=== PATIENT | female | born 2000 | race Caucasian/White ===

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

== ENCOUNTER 2019-12-15 18:40 | Outpatient (CLI) | payer OTHER ==
[2019-12-15 19:10] LABS: APPEARANCE,URINE SLIGHTLY-CLOUDY; BILIRUBIN,URINE NEGATIVE (NEGATIVE); COLOR,URINE YELLOW; GLUCOSE, URINE NEGATIVE (NEGATIVE); KETONES,URINE NEGATIVE (NEGATIVE); LEUKOCYTE ESTERASE,URINE NEGATIVE (NEGATIVE); NITRITE,URINE NEGATIVE (NEGATIVE); PROTEIN,URINE NEGATIVE (NEGATIVE); URINE SPECIFIC GRAVITY 1.005; UROBILINOGEN,URINE NEGATIVE mg/dL (<2.0)
[2019-12-15] MEDS ORDERED: ACETAMINOPHEN 325 MG TABLET ONE (19:20)
[2019-12-15 19:22] LABS: URINE AMPHETAMINES SCREEN NEGATIVE; URINE BARBITURATES SCREEN NEGATIVE; URINE BENZODIAZEPINES SCREEN NEGATIVE; URINE COCAINE SCREEN NEGATIVE; URINE MARIJUANA (THC) SCREEN NEGATIVE; URINE METHADONE SCREEN NEGATIVE; URINE PHENCYCLIDINE SCREEN NEGATIVE
[2019-12-15] MEDS ORDERED: ACETAMINOPHEN 325 MG TABLET PO ONE (20:30)
--- NOTE | 2019-12-15 20:53 | Non Stress Test Report ---
Non Stress Test Datetime Report Generated by CPN: 12/15/2019 20:53 DEMOGRAPHIC EGA NST: 38.3 INDICATION Indication for Study (NST) Other: lc/pre-e VITAL SIGNS Temperature - NST: 98.7 Pulse - NST: 68 RESP - NST: 18 NBPSYS NST: 112 NBPDIA NST: 58 MONITORING Monitor Explained: Monitor Explained; Test Explained; Patient Verbalized Understanding Time on Monitor: 12/15/2019 19:21 Time off Monitor: 12/15/2019 20:25 NST Duration: 64 NST INTERVENTIONS NST Interventions: PO Hydration; Reposition Patient Physician Notified NST: Dr Inder BABY A: [id number] BABY A Movement : Present Contraction Frequency : rare FHR Baseline : 135 Accelerations : 15X15 Decelerations : None Variability : Moderate 6-25bpm NST Review: Meets Criteria for Reactive NST NST Review and Verified By : Amor Caballero RN NST Results: Reactive NST REPORT Report Trigger: Send Report
== END 2019-12-15 20:39 | disposition home or self-care (01) ==
LOC: LC 18:40
PROVIDERS: ATTEND Obstetrics & Gynecology
DX: O26.893 Other specified pregnancy related conditions, third trimester (principal); R51 Headache; O12.03 Gestational edema, third trimester; Z3A.39 39 weeks gestation of pregnancy
CPT/HCPCS: 59025; 80307; 81001

== ENCOUNTER 2019-12-21 04:59 | Outpatient (CLI) | payer OTHER ==
[2019-12-21 06:05] LABS: APPEARANCE,URINE CLOUDY; BILIRUBIN,URINE NEGATIVE (NEGATIVE); COLOR,URINE YELLOW; GLUCOSE, URINE NEGATIVE (NEGATIVE); KETONES,URINE NEGATIVE (NEGATIVE); LEUKOCYTE ESTERASE,URINE TRACE (NEGATIVE); NITRITE,URINE NEGATIVE (NEGATIVE); PROTEIN,URINE 30 mg/dL (NEGATIVE); URINE SPECIFIC GRAVITY 1.014; UROBILINOGEN,URINE NEGATIVE mg/dL (<2.0)
[2019-12-21 06:25] LABS: URINE AMPHETAMINES SCREEN NEGATIVE; URINE BARBITURATES SCREEN NEGATIVE; URINE BENZODIAZEPINES SCREEN NEGATIVE; URINE COCAINE SCREEN NEGATIVE; URINE MARIJUANA (THC) SCREEN NEGATIVE; URINE METHADONE SCREEN NEGATIVE; URINE PHENCYCLIDINE SCREEN NEGATIVE
[2019-12-21] MEDS ORDERED: RINGERS SOLUTION,LACTATED 1,000 ML IV PRN (07:45)
[2019-12-21] MEDS ORDERED: RINGERS SOLUTION,LACTATED 1,000 ML IV ONE (07:45)
[2019-12-21] MEDS ORDERED: HYDROXYZINE PAMOATE 50 MG CAPSULE ONE (09:09)
[2019-12-21] MEDS ORDERED: HYDROXYZINE PAMOATE 50 MG CAPSULE PO ONE (09:10)
== END 2019-12-21 05:06 | disposition home or self-care (01) ==
LOC: LC 04:59
PROVIDERS: ATTEND Student in an Organized Health Care Education/Training Program
DX: O47.1 False labor at or after 37 completed weeks of gestation (principal); Z3A.39 39 weeks gestation of pregnancy; Z87.891 Personal history of nicotine dependence
CPT/HCPCS: 80307; 81005

== ENCOUNTER 2019-12-22 19:11 | Outpatient (CLI) | payer OTHER ==
[2019-12-22 20:01] LABS: APPEARANCE,URINE SLIGHTLY-CLOUDY; BILIRUBIN,URINE NEGATIVE (NEGATIVE); COLOR,URINE YELLOW; GLUCOSE, URINE NEGATIVE (NEGATIVE); KETONES,URINE NEGATIVE (NEGATIVE); LEUKOCYTE ESTERASE,URINE NEGATIVE (NEGATIVE); NITRITE,URINE NEGATIVE (NEGATIVE); PROTEIN,URINE NEGATIVE (NEGATIVE); URINE SPECIFIC GRAVITY 1.011; UROBILINOGEN,URINE NEGATIVE mg/dL (<2.0)
[2019-12-22 20:16] LABS: URINE AMPHETAMINES SCREEN NEGATIVE; URINE BARBITURATES SCREEN NEGATIVE; URINE BENZODIAZEPINES SCREEN NEGATIVE; URINE COCAINE SCREEN NEGATIVE; URINE MARIJUANA (THC) SCREEN NEGATIVE; URINE METHADONE SCREEN NEGATIVE; URINE PHENCYCLIDINE SCREEN NEGATIVE
[2019-12-22] MEDS ORDERED: HYDROXYZINE PAMOATE 50 MG CAPSULE PO ONE (21:48)
[2019-12-22] MEDS ORDERED: HYDROXYZINE PAMOATE 50 MG CAPSULE ONE (21:50)
--- NOTE | 2019-12-22 22:11 | Non Stress Test Report ---
Non Stress Test Datetime Report Generated by CPN: 12/22/2019 22:11 DEMOGRAPHIC EGA NST: 39.3 INDICATION Indication for Study (NST) Other: labor check VITAL SIGNS Temperature - NST: 97.7 Pulse - NST: 102 RESP - NST: 16 NBPSYS NST: 124 NBPDIA NST: 74 MONITORING Monitor Explained: Monitor Explained; Test Explained; Patient Verbalized Understanding Time on Monitor: 12/22/2019 19:30 Time off Monitor: 12/22/2019 20:34 NST Duration: 64 NST INTERVENTIONS NST Interventions: None Physician Notified NST: Dr Freeman BABY A: [id number] BABY A Movement : Present Contraction Frequency : 3-4.5 FHR Baseline : 145 Accelerations : 15X15 Decelerations : None Variability : Moderate 6-25bpm NST Review: Meets Criteria for Reactive NST NST Review and Verified By : Amor Caballero RN NST Results: Reactive NST REPORT Report Trigger: Send Report
== END 2019-12-22 22:05 | disposition home or self-care (01) ==
LOC: LC 19:11
PROVIDERS: ATTEND Obstetrics & Gynecology
DX: O47.1 False labor at or after 37 completed weeks of gestation (principal); Z3A.39 39 weeks gestation of pregnancy; Z87.891 Personal history of nicotine dependence
CPT/HCPCS: 59025; 80307; 81005

== ENCOUNTER 2019-12-24 11:52 | Inpatient (IN) | payer OTHER ==
[2019-12-24 12:41] LABS: APPEARANCE,URINE SLIGHTLY-CLOUDY; BILIRUBIN,URINE NEGATIVE (NEGATIVE); COLOR,URINE STRAW; GLUCOSE, URINE NEGATIVE (NEGATIVE); KETONES,URINE NEGATIVE (NEGATIVE); LEUKOCYTE ESTERASE,URINE TRACE (NEGATIVE); NITRITE,URINE NEGATIVE (NEGATIVE); PROTEIN,URINE NEGATIVE (NEGATIVE); URINE SPECIFIC GRAVITY 1.002; UROBILINOGEN,URINE NEGATIVE mg/dL (<2.0)
[2019-12-24] MEDS ORDERED: OXYTOCIN 10 UNIT/ML VIAL ONE (12:58)
[2019-12-24] MEDS ORDERED: LIDOCAINE 1% INJ-PF (10 MG/ML) 30 ML SDV ONE (12:58)
[2019-12-24] MEDS ORDERED: MISOPROSTOL 0.2 MG TABLET ONE (12:58)
[2019-12-24] MEDS ORDERED: PENICILLIN G-K 5 MILLION UNIT VIAL ONE (12:59)
[2019-12-24] MEDS ORDERED: OXYTOCIN/0.9 % SODIUM CHLORIDE 0 UNIT/0 ML RTUINJ ONE (12:59)
[2019-12-24 13:01] LABS: URINE AMPHETAMINES SCREEN NEGATIVE; URINE BARBITURATES SCREEN NEGATIVE; URINE BENZODIAZEPINES SCREEN NEGATIVE; URINE COCAINE SCREEN NEGATIVE; URINE MARIJUANA (THC) SCREEN NEGATIVE; URINE METHADONE SCREEN NEGATIVE; URINE PHENCYCLIDINE SCREEN NEGATIVE
[2019-12-24] MEDS: RINGERS SOLUTION,LACTATED 1,000 ML IV PRN ×2 (13:05→17:03)
[2019-12-24] MEDS ORDERED: RINGERS SOLUTION,LACTATED 1,000 ML IV ONE (13:12)
[2019-12-24] MEDS ORDERED: PENICILLIN G POTASSIUM 5,000,000 UNIT in DEXTROSE 5%-WATER 100 ML IV ONE (13:12)
--- NOTE | 2019-12-24 13:33 | Admission Physical ---
Datetime Report Generated by CPN: 12/24/2019 13:33 CURRENT ADMISSION Hx Assessment: The History has been Reviewed and is Current Chief Complaint: Uterine Contractions Indication for Induction: Not Applicable Admit Impression : Term, Intrauterine ; No Active Labor; Ruptured Membranes Admit Plan: Admit to Unit; Initiate Labor Augmentation Protocol ALLERGIES Medication Allergies: No Medication Allergies: No Known Allergies (12/24/2019) Latex: No Latex Allergies OBSTETRICAL HISTORY EDC: 12/26/2019 00:00 : 1 Para: 0 Term: 0 : 0 SAB: 0 IAB: 0 Ectopic: 0 Livin Cesareans: 0 VBACs: 0 Multiple Births: 0 Gestational Diabetes: No Rh Sensitization: No Incompetent Cervix: No JOSÉ MIGUEL: No Infertility: No ART Treatment: No Uterine Anomaly: No IUGR: No Hx Previous C/S: No Macrosomia: No Hx Loss/Stillborn: No PIH: No Hx : No Placenta Previa/Abruption: No Depression/PP Depression: No PTL/PROM: No Post Hemorrhage: No Current Procedures: Ultrasound; NST Obstetrical History Comments: G1- current SEE RECORDS Alcohol: No Marijuana : No Cocaine: No Other Illicit Drugs: No Cigarettes: Former Smoker. [id number] Cigarette Comments: Smoked Juul prior to . Once confirmed, stopped. MEDICAL HISTORY Diabetes: No Blood Transfusion: No Pulmonary Disease (Asthma, TB): No Breast Disease: No Hypertension: No Hairspring Studder Surgery: No Heart Disease: No Hosp/Surgery: No Autoimmune Disorder: No Anesthetic Complications: No Kidney Disease: No Abnormal Pap Smear: No Neuro/Epilepsy: No Psychiatric Disorders: Yes Other Medical Diseases: No Hepatitis/Liver Disease: No Significant Family History: No Varicosities/Phlebitis: No Trauma/Violence : No Thyroid Dysfunction: No Medical History Comments: anxiety, depression-stopped Lexapro with INFECTIOUS HISTORY Gonorrhea: No Genital Herpes: No Chlamydia: No Tuberculosis: No Syphilis: No Hepatitis: No HIV/AIDS Exposure: No Rash or Viral Illness: No HPV: No PHYSICAL EXAM General: Normal HEENT: Deferred Neurologic: Normal Thyroid: Normal Heart: Normal Lungs: Normal Breast: Deferred Back: Normal Abdomen: Normal Genitourinary Exam: Normal Extremities: Normal DTRs: Normal Pelvic Type: Adequate Physical Exam Comments: G1, + GBS Hx Depression, no meds 39+5 Vital Signs: Reviewed MEMBRANES Membranes: Ruptured FETUS A EGA: 39.5 Monitoring: External US Accelerations: 15X15 Decelerations: None FHR Category: Category I Presentation: Vertex Admit Comment: Admitted to LD with complaint of contractions and leaking fluid, Amnisure + Cat 1 strip Admit, Pitocin if not in active labor uc's q 2-3, + accels anticipate PLANS FOR LABOR AND DELIVERY Labor and Delivery: None Pain Management: Epidural Feeding Preference: Breast Benefit of Breast Feed Discussed: Yes Circumcision: Yes INFORMED CONSENT Assignment: Char Rockwell MD Signature: with User ID: [email or web address] : with User ID: [email or web address]
[2019-12-24 14:40] LABS: ABSOLUTE LYMPHOCYTES (AUTO) 2.5 10^3/uL (0.5-4.7); ABSOLUTE MONOCYTES (AUTO) 1.1 10^3/uL (0.1-1.4); ABSOLUTE NEUT (AUTO) 7.6 10^3/uL (1.7-8.2); BASOPHILS % (AUTO) 0.3 % (0-2); EOSINOPHILS % (AUTO) 0.2 % (0-6); HEMATOCRIT 37.4 % (36.0-47.0); LYMPHOCYTES % (AUTO) 22.2 % (13-45); MEAN CORPUSCULAR HEMOGLOBIN 29.5 pg (27.0-33.4); MEAN CORPUSCULAR HGB CONC 34.7 g/dL (32.0-36.0); MEAN CORPUSCULAR VOLUME 85 fl (80-97); MONOCYTES % (AUTO) 9.7 % (3-13); PLATELET COUNT 314 10^3/uL (150-450); RED CELL DISTRIBUTION WIDTH 14.6 % (11.5-14.0); SEGMENTED NEUTROPHILS % (AUTO) 67.6 % (42-78); TOTAL CELLS COUNTED % (AUTO) 100 %; WHITE BLOOD COUNT 11.3 10^3/uL (4.0-10.5)
[2019-12-24] MEDS ORDERED: FENTANYL/BUPIVACAINE/NS/PF 300 MCG/150 ML RTUINJ EPI ONE (16:39)
[2019-12-24] MEDS ORDERED: EPHEDRINE SULFATE INJ 50 MG/1 ML AMPULE ONE (16:39)
[2019-12-24] MEDS ORDERED: ROPIVACAINE HCL 0.2% INJ/PF (2 MG/ML) 20 ML SDV ONE (16:40)
[2019-12-24] MEDS: PENICILLIN G POTASSIUM 2,500,000 UNIT in DEXTROSE 5%-WATER 50 ML IV SCH ×2 (17:23→22:26)
--- NOTE | 2019-12-24 17:55 | Warning Signs in Babies ---
VOD Warning Signs Datetime Report Generated by [facility]: 12/24/2019 17:55 VOD#608 -Warning Signs in Babies: Viewed with Parent(s)/Family (12/24/2019 17:54:Juvenal Hurd RN)
[2019-12-25] MEDS ORDERED: CEFAZOLIN 2 GM/D5W RTU 2 GM/50 ML RTUPB IV ONE (01:06)
[2019-12-25] MEDS ORDERED: CITRIC ACID/SODIUM CITRATE ORAL SOLN 15 ML UDCUP ONE (01:06)
[2019-12-25] MEDS ORDERED: CEFAZOLIN SODIUM 2 GM in DEXTROSE 5%-WATER 50 ML IV PRN (01:07)
[2019-12-25] MEDS ORDERED: LIDOCAINE 2% INJ-PF (20 MG/ML) 10 ML AMPUL ONE (01:21)
[2019-12-25] MEDS ORDERED: FENTANYL CITRATE INJ/PF 100 MCG/2 ML AMPUL ONE ×3 (01:22→02:25)
[2019-12-25] MEDS ORDERED: ONDANSETRON HCL INJ/PF 4 MG/2 ML SDV ONE (01:22)
[2019-12-25] MEDS ORDERED: KETAMINE HCL INJ 500 MG/10 ML VIAL ONE (01:34)
[2019-12-25] MEDS ORDERED: MIDAZOLAM 2 MG/2 ML INJ ONE (01:36)
[2019-12-25] MEDS ORDERED: KETOROLAC TROMETHAMINE 60 MG/2 ML SDV ONE (01:49)
[2019-12-25] MEDS ORDERED: OXYTOCIN 10 UNIT/ML VIAL ONE (02:31)
[2019-12-25] MEDS ORDERED: OXYCODONE-ACETAMINOPHEN 5-325 MG TABLET PO PRN (02:42)
[2019-12-25] MEDS ORDERED: OXYTOCIN/0.9 % SODIUM CHLORIDE 30 UNIT/500 ML RTUINJ IV PRN (02:42)
[2019-12-25] MEDS ORDERED: SIMETHICONE 80 MG TAB.CHEW PO PRN (02:42)
[2019-12-25] MEDS ORDERED: MEASLES,MUMPS&RUBELLA VACC/PF 0.5 ML VIAL SUBCUT PRN (02:42)
[2019-12-25] MEDS ORDERED: HYDROMORPHONE HCL INJ/PF 2 MG/ML AMPULE IV PRN (02:42)
[2019-12-25] MEDS ORDERED: PROMETHAZINE HCL INJ 25 MG/1 ML VIAL IV PRN (02:42)
[2019-12-25] MEDS ORDERED: ACETAMINOPHEN 325 MG TABLET PO PRN (02:42)
[2019-12-25] MEDS ORDERED: DIPH/PERTUSS(ACELL)/TETANUS VAC/PF 0.5 ML SYR (>=10YO) IM PRN (02:42)
[2019-12-25] MEDS ORDERED: RINGERS SOLUTION,LACTATED 1,000 ML IV PRN (02:42)
--- NOTE | 2019-12-25 02:59 | Operative Report ---
Operative Report DATE OF SURGERY: 12/25/19 PREOPERATIVE DIAGNOSIS: Intrauterine at 39+ weeks EGA. SROM. Active labor. Non-reasurring heart tracing in labor: repetitive late decels POSTOPERATIVE DIAGNOSIS: Same as above, plus heavy meconium OPERATION: Primary section SURGEON: NICKOLAS MEJIA ANESTHESIA: Spinal TISSUE REMOVED OR ALTERED: Placenta COMPLICATIONS: None INTRAOPERATIVE FINDINGS: Normal appearing uterus, bilateral fallopian tubes and ovaries. Heavily stained meconium fluid. Viable male . PROCEDURE: IV fluids: per anesthesia record Urinary output: 175 cc blood tinged urine in tran bag. Urine was blood tinged when catheter was inserted in the patients room and did not get any darker. Findings: Normal-appearing uterus bilateral fallopian tubes and ovaries. Placenta grossly normal. Viable male . Heavy stained meconium fluid -large amount Position: To recovery room in stable condition Description of procedure: The patient was taken to the operating room and spinal anesthesia was administered through the epidural catherter and was not adequate at first . Patient redosed and found to be adequate. She was then placed on the OR table in the supine position with a slight leftward tilt. Patient was prepped and draped in usual sterile fashion. Ancef 2 gms was given IV prior to the procedure for infection prophylaxis. Timeout was taken. A Pfannenstiel skin incision was then made approximately 3 cm above the pubic symphysis and carried down to level the rectus fascia. The rectus fascia was then nicked in the midline with a scalpel and the fascial incision was extended laterally with use of curved Wilkerson scissors. The rectus fascia was then grasped with 2 Kocker clamps elevated and the underlying rectus muscle was dissected off both bluntly and sharply. Any bleeding controlled with cautery. The rectus muscles were then split in the midline and the peritoneum was entered. The peritoneal incision was then extended by manually stretching the peritoneum. The bladder blade was positioned. The bladder was noted to be out of harm's way. A scalpel was then used in the lower uterine for the hysterotomy, slowly until amniotomy was obtained a large amount of heavy meconium fluid was noted. The uterine incision was then manually stretched. The infant was noted to be in vertex postion -deep in the pelvis. Using a hand deep in pelvis and the assistance of an RN hand from the bottom, the head was elevated and brought to the hysterotomy incision. This did require the use of the kiwi vacuum with no pop-offs. The head then delivered and the shoulders and the rest of the body followed immediately. The cord was cut clamped and the infant was handed off to the nurse awaiting. Infant was grimacing and trying to cry prior to hand off. Oral suctioning done prior to hand off. The placenta was manually delivered. Using a lap gauze the uterus was cleared of all clots and debris. An abbie retractor was placed to facilitate closure of uterus. The uterus was then exteriorized but visualization of the lower uterine segment was poor so it was repositioned. The uterine incision was then closed with 0 Chromic suture in a running locked fashion. A second layer of the same suture was used in a running locked imbricated fashion. Some oozing was noted at the right corner of the uterus and an addition box stitch x2 was placed in this area. The uterine incision was inspected and noted to be hemostatic. Retractor was removed. The posterior aspect of the uterus was then inspected and anatomy was seen as above. Warm saline irrigation was used to clear all clots and debris from the abdomen. The uterine incision was inspected once more and noted to remain hemostatic. The bladder blade was removed and the peritoneum was closed with 2-0 chromic in a running fashion. The rectus muscles were then reapproximated and the rectus fascia was closed with a #0 PDS in a running fashion. A second suture was brought from the opposite side and met the first suture just right of the middle. Overlapped in this area. No fascia deficit was noted on inspection. The subcutaneous tissue was then inspected and any bleeding was controlled with Bovie electrocautery. The subcutaneous tissue was then closed with 2-0 Plain Gut suture in a running fashion. The skin was then closed with 4-0 Monocryl in a running subcuticular fashion. The skin incision was then clean dried and Dermabond was applied over the skin incision. All instrument sponge and needle counts were correct x3 for the procedure the patient tolerated the procedure well. She will proceed to recovery room in stable condition
--- NOTE | 2019-12-25 03:01 | PDOC DELIVERY SUMMARY ---
Delivery Summary - Maternal Hx : I Hx Para: 0 Gestational Age: 39 Ruptured Membranes: SROM Fluids: Clear - Delivery Presentation: Vertex Heart Rate Monitoring: Done Pre-Operatively Uterine Contraction Monitoring: External Pattern: Late Decels Support Person Present: Yes Location: OR : Emergency Placenta: Within Normal Limits Number of Vessels (Cord): 3 Nuchal Cord: No Estimated Blood Loss: 900cc - Medications Type of Anesthesia:: Spinal - Delivery Personnel CHURCH OFFICIAL: RHONDA BELTRAN RN: JAY SIMMONS MD: NICKOLAS MEJIA
[2019-12-25] MEDS ORDERED: MORPHINE SULFATE 10 MG/ML INJ ONE (03:25)
[2019-12-25] MEDS ORDERED: OXYCODONE-ACETAMINOPHEN 5-325 MG TABLET ONE (04:46)
--- NOTE | 2019-12-25 05:16 | Birth Certificate Data ---
Cert Data Datetime Report Generated by CPShannon: 12/25/2019 05:16 CERTIFICATE DATA 47a. Care: Yes (12/15/2019 18:49:Nayeli Andrew RN) 47b. Date of First Visit: 05/17/2019 00:00 (12/15/2019 18:49:Nayeli Andrew RN) 47c. Date of Last Visit: 12/16/2019 00:00 (12/15/2019 18:49:Nayeli Andrew RN) 47d. Number of Visits: 10 (12/15/2019 18:49:Nayeli Andrew RN) 48a. Number of Prev Live Births: 0 (12/15/2019 18:49:Nayeli Andrew RN) 48b. Now Livin (12/15/2019 18:49:Tsering Gonzalez RN) 48c. Live Births Now : 0 (12/15/2019 18:49:QS system process) 48e. Losses: 0 (12/15/2019 18:49:Nayeli Andrew RN) RISK FACTORS IN THIS 49a. Diabetes: No (12/15/2019 18:49:Erin Hunter RN) 49b. Hypertension: No (12/15/2019 18:49:Erin Hunter RN) 49c. Previous Births: 0 (12/15/2019 18:49:Tsering Gonzalez RN) 49d. Stillborns: No (12/15/2019 18:49:Erin Hunter RN) 49d. IUGR: No (12/15/2019 18:49:Erin Hunter RN) 49e. Infertility Treatment: No (12/15/2019 18:49:Erin Hunter RN) 49f. Previous Cesareans: 0 (12/15/2019 18:49:Nayeli Andrew RN) Mother's Height 50b. Height Inches: 61 (12/24/2019 12:45:QS system process) Mother's Weight 51a. Pre- Weight (lbs): 141 (12/15/2019 18:49:DESIREE Cartwright) 51b. Weight at Delivery (lbs): 180 (12/24/2019 12:45:QS system process) Infections Present/Treated 53a. Gonorrhea: No (12/15/2019 18:49:Erin Hunter RN) Results this Hospital Visit : Negative (12/15/2019 18:49:Becki Amor RN) 53b. Syphilis: No (12/15/2019 18:49:Erin Hunter RN) 53c. Chlamydia: No (12/15/2019 18:49:Erin Hunter RN) Results this Hospital Visit: Negative (12/15/2019 18:49:Becki Amor RN) 53d. Hepatitis B: No (12/15/2019 18:49:Erin Hunter RN) Results this Hospital Visit: Negative (12/15/2019 18:49:Becki Amor RN) 53e. Hepatitis C: Negative (12/15/2019 18:49:Becki Amor RN) 53h. Mother Tested for HBsAG: Yes (12/15/2019 18:49:Nayeli Andrew RN) 53i. Date Tested: 05/17/2019 00:00 (12/15/2019 18:49:Nayeli Andrew RN) 53j. Test Result: Negative (12/15/2019 18:49:Becki Amor RN) Obstetric Procedures 54a, b, c. Obstetric Procedures: Ultrasound; NST (12/15/2019 18:49:Erin Hunter RN) Cigarette Smoking 55a. 3 Months Before Preg - Ci (12/15/2019 18:49:DESIREE Cartwright) 55b. 1st Trimester of Preg- Ci (12/15/2019 18:49:Juvenal Hurd RN) 55c. 2nd Trimester of Preg- Ci (12/15/2019 18:49:Juvenal Hurd RN) 55d. 3rd Trimester of Preg- Ci (12/15/2019 18:49:Juvenal Hurd RN) Onset of Labor 56a. PROM >12 Hrs: 22.22 (12/15/2019 18:49:QS system process) 56b. Precipitous Labor <3 Hrs: 13 (12/15/2019 18:49:QS system process) 56c. Prolonged Labor > 20 Hrs: 13 (12/15/2019 18:49:QS system process) 57a. Induction of Labor: N/A (12/15/2019 18:49:Antoinette Lemons RN) 57c. Non-Vertex Presentation A: Vertex (12/15/2019 18:49:Antoinette Lemons RN) 57d. Steroids - Lung Mat: None (12/15/2019 18:49:Antoinette Lemons RN) 57d. Steroids - Lung Mat: Not Applicable (12/15/2019 18:49:Antoinette Lemons RN) 57e. Antibiotics During Labor: 12/24/2019 22:26 (12/15/2019 18:49:Antoinette Lemons RN) 57g. Moderate/Heavy Meconium: Clear (12/15/2019 18:49:DESIREE Murillo) 57h. Intolerance of Labor: Nonreassuring Status (12/15/2019 18:49:Antoinette Lemons RN) 57i. Epidural/Spinal Anesthesia: Epidural (12/15/2019 18:49:Antoinette Lemons RN) Method of Delivery 58a. Forceps - Unsuccessful A: N/A (12/15/2019 18:49:Antoinette Lemons RN) 58b. Vacuum - Unsuccessful A: Successful (12/15/2019 18:49:Antoinette Lemons RN) 58c. Presentation at 58c. Presentation at - A : Vertex (12/15/2019 18:49:Antoinette Lemons RN) 58c. Presentation at - A : N/A (12/15/2019 18:49:Antoinette Lemons RN) 58c. Presentation at - A : Cephalic (12/24/2019 12:20:Juvenal Hurd RN) Final Route and Method of Del 58d. Baby A Route/Delivery: (12/15/2019 18:49:Antoinette Lemons RN) 58e. Trial of Labor Attempted: No (12/15/2019 18:49:Antoinette Lemons RN) 58e. Trial of Labor Attempted A: N/A (12/15/2019 18:49:Antoinette Lemons RN) 58e. Trial of Labor Attempted B: N/A (12/15/2019 18:49:Antoinette Lemons RN) Maternal Morbidity 59b. 3rd or 4th Degree Lacs: None (12/15/2019 18:49:Antoinette Lemons RN) Birthweight Baby A: 3180 (12/15/2019 18:49:García Caballero RN) 60a. Pounds : 7 (12/15/2019 18:49:QS system process) 60b. Ounces: 0 (12/15/2019 18:49:QS system process) 61. GA at Delivery Baby A: 39.6 (12/15/2019 18:49:Antoinette Lemons RN) : Full Term- 39- 40.6 Weeks (12/15/2019 18:49:QS system process) 62a. 5 Minute Baby A: 7 (12/15/2019 18:49:QS system process)
--- NOTE | 2019-12-25 05:16 | Delivery Summary ---
Del Sum A-C Datetime Report Generated by CPN: 12/25/2019 05:16 DELIVERY PERSONNEL DELIVERY PERSONNEL: [id number] Delivery Doctor:: Char Rockwell MD Anesthesiologist:: [place] MUNICIPAL ENGINEER:: Edyta Mace CRNA Labor and Delivery Nurse:: Antoinette Lemons RN Color Straining Bag Washer:: Antoinette Lemons RN Neonatal Nurse Practitioner:: ENDER Dougherty Nursery Nurse:: Ayanna Mi RN Electrical Accessories I Assembler/ANIMAL ANATOMY TEACHER: ST Yadira Electrical Accessories I Assembler/ANIMAL ANATOMY TEACHER: Graciela Velasquez POTATO LOADER MATERNAL INFORMATION Delivery Anesthesia: Epidural Medications After Delivery: Pitocin Bolus-Please Comment; Pitocin 30 Units in 500ml NS/D5W Delivery QBL: 460 Maternal Complications: None LABOR SUMMARY EDC: 12/26/2019 00:00 No. Babies in Womb: 1 Attempted: No Labor Anesthesia: Epidural LABOR INFORMATION Reason for Induction: Premature Rupture of Membranes Onset of Labor: 12/24/2019 12:20 Complete Dilatation: 12/25/2019 00:08 Oxytocin: N/A Group B Beta Strep: positive Antibiotics # of Doses: 3 Antibiotics Time of Last Dose: 12/24/2019 22:26 Name of Antibiotic Given: PCN Steroids Given: None Reason Steroids Not Administered: Not Applicable MEMBRANES Membranes Rupture Method: Spontaneous Rupture of Membranes: 12/24/2019 03:30 Length of Rupture (hr): 22.22 Amniotic Fluid Color: Clear Amniotic Fluid Amount: Small Amniotic Fluid Odor: None STAGES OF LABOR Stage 1 hr: 11 Stage 1 min: 48 Stage 2 hr: 1 Stage 2 min: 35 Stage 3 hr: 0 Stage 3 min: 2 Total Time in Labor hr: 13 Total Time in Labor min: 25 VAGINAL DELIVERY Episiotomy: None Laceration #1: None Laceration Extension #1: N/A Laceration Repair: Not Applicable Sponge Count Correct: N/A Sharps Count Correct: N/A CSECTION DELIVERY Primary Indication: Nonreassuring Status CSection Urgency: Emergency CSection Incidence: Primary Labor: Labor Elective: Nonelective CSection Incision: Lower Uterine Transverse BABY A INFORMATION Delivery Date/Time: 12/25/2019 01:43 Method of Delivery: Nurse Controlled Delivery: No Born in Route : No : N/A Forceps: N/A Vacuum Extraction: Successful Shoulder Dystocia : No PRESENTATION/POSITION BABY A Presentation: Cephalic Cephalic Presentation: Vertex Breech Presentation: N/A PLACENTA INFORMATION BABY A Placenta Delivery Time : 12/25/2019 01:45 Placenta Method of Delivery: Manual Removal Placenta Status: Delivered SCORES BABY A Heart Rate 1 min: >100 bpm Resp Effort 1 min: Absent Reflex Irritability 1 min: No Response Muscle Tone 1 min: Flaccid Color 1 min: Blue/Pale Resuscitation Effort 1 min: Tactile Stimulation; Oxygen; PPV/NCPAP SCORE 1 MIN: 2 Heart Rate 5 min: >100 bpm Resp Effort 5 min: Good Cry Reflex Irritability 5 min: Cough or Sneeze or Pulls Away Muscle Tone 5 min: Some Flexion of Extremities Color 5 min: Blue/Pale Resuscitation Effort 5 min: Oxygen; PPV/NCPAP SCORE 5 MIN: 7 INFORMATION BABY A Gestational Age at Delivery: 39.6 Gestational Status: Full Term- 39- 40.6 Weeks Infant Outcome : Liveborn Infant Condition : Stable Sex: Male IDENTIFICATION BABY A Infant Verification Date/Time: 12/25/2019 04:16 ID Band Number: [id number] Mother's Name Verified: Yes Infant RN Verifying Infant: Amor Caballero, MARKOS Additional Verifying Personnel: Grace Hayden, RN WEIGHT/LENGTH BABY A Infant Birthweight (gm): 3180 Infant Weight (lb): 7 Infant Weight (oz): 0 Infant Length (in): 21.00 Length (cm): 53.34 CORD INFORMATION BABY A No. Cord Vessels: 3 Nuchal Cord : N/A Cord Blood Taken: Yes-For Storage (Mom's Blood type +) ASSESSMENT BABY A Skin to Skin: No BABY B INFORMATION : N/A
[2019-12-25] MEDS ORDERED: CEFAZOLIN 1 GM/D5W RTU 1 GM/50 ML RTUPB IV SCH (06:00)
[2019-12-25 06:53] LABS: HEMATOCRIT 35.4 % (36.0-47.0); MEAN CORPUSCULAR HEMOGLOBIN 29.6 pg (27.0-33.4); MEAN CORPUSCULAR VOLUME 87 fl (80-97); PLATELET COUNT 291 10^3/uL (150-450); RED BLOOD COUNT 4.07 10^6/uL (3.72-5.28); RED CELL DISTRIBUTION WIDTH 15.1 % (11.5-14.0); WHITE BLOOD COUNT 19.7 10^3/uL (4.0-10.5)
[2019-12-25 06:54] LABS: ABSOLUTE LYMPHOCYTES (AUTO) 2.2 10^3/uL (0.5-4.7); ABSOLUTE MONOCYTES (AUTO) 1.8 10^3/uL (0.1-1.4); ABSOLUTE NEUT (AUTO) 15.8 10^3/uL (1.7-8.2); BASOPHILS % (AUTO) 0.1 % (0-2); LYMPHOCYTES % (AUTO) 10.9 % (13-45); TOTAL CELLS COUNTED % (AUTO) 100 %
[2019-12-25] MEDS: KETOROLAC TROMETHAMINE INJ/PF 30 MG/1 ML SDV IV SCH ×2 (10:30→18:03)
[2019-12-25] MEDS: PRENATAL VITAMIN W DHA CAPSULE PO SCH (10:30)
[2019-12-25] MEDS: DOCUSATE SODIUM 100 MG CAPSULE PO SCH ×2 (10:30→18:04)
[2019-12-25] MEDS: OXYCODONE-ACETAMINOPHEN 5-325 MG TABLET PO PRN ×2 (10:32→18:04)
[2019-12-25] MEDS: PENICILLIN G POTASSIUM 2,500,000 UNIT in DEXTROSE 5%-WATER 50 ML IV SCH (17:28)
[2019-12-26] MEDS: OXYCODONE-ACETAMINOPHEN 5-325 MG TABLET PO PRN ×2 (01:48→17:17)
[2019-12-26] MEDS: IBUPROFEN 800 MG TABLET PO SCH ×3 (05:31→22:16)
--- NOTE | 2019-12-26 08:30 | PDOC PROGRESS REPORT ---
Subjective-OB Progress Note for:: 12/26/19 Physical Exam (OB) Vital Signs: Temp Pulse Resp BP Pulse Ox 98.7 F 83 18 104/60 97 12/26/19 04:48 12/26/19 04:48 12/26/19 04:48 12/26/19 04:48 12/26/19 04:48 Intake & Output 12/25/19 12/26/19 12/27/19 06:59 06:59 06:59 Intake Total 496 2980 Output Total 2625 Balance 496 355 Weight 81.9 kg - PIH/Pre-Eclampsia Clonus: Negative Headache: Absent Epigastric Pain: No Visual Changes: No - Dressing Removed: No Incision: Open, Well Approximated Closure Type: Surgical Glue - Maternal Morbidity 59. Maternal Morbidity (serious complications experinced by the mother associated with labor and delivery: None of the above - Lochia Lochia Amount: Scant < 10 ml Lochia Color: Rubra/Red - Abdomen Description: Soft, Flat Hernia Present: No Bowel Sounds: Normoactive Flatus Presence: Present Stool: No Fundal Description: Firm, Midline Fundal Height: u/u - u/2 Objective-Diagnostic Laboratory: 12/25/19 06:12 Assessment and Plan(PN) - Time Spent with Patient Time with patient: 15-25 minutes Medications reviewed and adjusted accordingly: Yes - Disposition Anticipated Discharge Disposition: Home, Self Care Anticipated Discharge Timeframe: within 36 hours
[2019-12-26 08:45] LABS: HEMATOCRIT 32.8 % (36.0-47.0); MEAN CORPUSCULAR HEMOGLOBIN 29.3 pg (27.0-33.4); MEAN CORPUSCULAR HGB CONC 33.6 g/dL (32.0-36.0); MEAN CORPUSCULAR VOLUME 87 fl (80-97); PLATELET COUNT 251 10^3/uL (150-450); RED BLOOD COUNT 3.76 10^6/uL (3.72-5.28); RED CELL DISTRIBUTION WIDTH 14.8 % (11.5-14.0); WHITE BLOOD COUNT 14.5 10^3/uL (4.0-10.5)
[2019-12-26] MEDS: DOCUSATE SODIUM 100 MG CAPSULE PO SCH ×2 (13:09→17:18)
[2019-12-26] MEDS: PRENATAL VITAMIN W DHA CAPSULE PO SCH (13:09)
[2019-12-27] MEDS: IBUPROFEN 800 MG TABLET PO SCH ×2 (05:31→13:00)
[2019-12-27] MEDS: DOCUSATE SODIUM 100 MG CAPSULE PO SCH (10:52)
[2019-12-27] MEDS: PRENATAL VITAMIN W DHA CAPSULE PO SCH (10:52)
--- NOTE | 2019-12-27 11:26 | PDOC DISCHARGE SUMMARY ---
Impression - Admit/DC Date/PCP Admission Date/Primary Care Provider: 12/24/19 12:42 CHAI GARNER PA-C Discharge Date: 12/27/19 - Discharge Diagnosis (1) Normal course Is this a current diagnosis for this admission?: Yes (2) Cigarette smoker Is this a current diagnosis for this admission?: Yes (3) History of depression Is this a current diagnosis for this admission?: Yes (4) S/P primary low transverse Is this a current diagnosis for this admission?: Yes - Additional Information Resuscitation Status: Full Code Discharge Diet: As Tolerated, Regular Discharge Activity: Activity As Tolerated, No Driving, No Lifting Over 10 Pounds, Pelvic Rest Referrals: CHAI GARNER PA-C [Primary Care Provider] - Prescriptions: Ibuprofen [Motrin 800 mg Tablet] 800 mg PO Q8 #60 tablet Oxycodone HCl/Acetaminophen [Percocet 5-325 mg Tablet] 1 tab PO Q4HP PRN #30 tablet PRN Reason: Pain Scale Of 4 Home Medications: Prenat 115/Iron Fum/Folic/Dss [ 19 Tablet] 1 each PO DAILY 12/15/19 Ibuprofen [Motrin 800 mg Tablet] 800 mg PO Q8 #60 tablet 12/27/19 Oxycodone HCl/Acetaminophen [Percocet 5-325 mg Tablet] 1 tab PO Q4HP PRN #30 tablet 12/27/19 HPI Reason(s) for Admission: Ceasarean Section-Primary Procedures: Ultrasound Intrapartum Procedure(s): : Low Cervical, Vertical, Other - intolerance to labor Hospital Course 59. Maternal Morbidity (serious complications experinced by the mother associated with labor and delivery: None of the above Results Laboratory Results: WBC 14.5 10^3/uL (4.0-10.5) H 12/26/19 07:49 RBC 3.76 10^6/uL (3.72-5.28) 12/26/19 07:49 Hgb 11.0 g/dL (12.0-15.5) L 12/26/19 07:49 Hct 32.8 % (36.0-47.0) L 12/26/19 07:49 MCV 87 fl (80-97) 12/26/19 07:49 MCH 29.3 pg (27.0-33.4) 12/26/19 07:49 MCHC 33.6 g/dL (32.0-36.0) 12/26/19 07:49 RDW 14.8 % (11.5-14.0) H 12/26/19 07:49 Plt Count 251 10^3/uL (150-450) 12/26/19 07:49 Lymph % (Auto) 10.9 % (13-45) L 12/25/19 06:12 [place] % (Auto) 9.0 % (3-13) 12/25/19 06:12 Eos % (Auto) 0.0 % (0-6) 12/25/19 06:12 Baso % (Auto) 0.1 % (0-2) 12/25/19 06:12 Absolute Neuts (auto) 15.8 10^3/uL (1.7-8.2) H 12/25/19 06:12 Absolute Lymphs (auto) 2.2 10^3/uL (0.5-4.7) 12/25/19 06:12 Absolute Monos (auto) 1.8 10^3/uL (0.1-1.4) H 12/25/19 06:12 Absolute Eos (auto) 0.0 10^3/uL (0.0-0.6) 12/25/19 06:12 Absolute Basos (auto) 0.0 10^3/uL (0.0-0.2) 12/25/19 06:12 Seg Neutrophils % 80.0 % (42-78) H 12/25/19 06:12 POC Glucose 114 mg/dL (70-110) H 12/25/19 01:57 Urine Color STRAW 12/24/19 12:00 Urine Appearance SLIGHTLY-CLOUDY 12/24/19 12:00 Urine pH 6.0 (5.0-9.0) 12/24/19 12:00 Ur Specific [place] 1.002 12/24/19 12:00 Urine Protein NEGATIVE mg/dL (NEGATIVE) 12/24/19 12:00 Urine Glucose (UA) NEGATIVE mg/dL (NEGATIVE) 12/24/19 12:00 Urine Ketones NEGATIVE mg/dL (NEGATIVE) 12/24/19 12:00 Urine Blood NEGATIVE (NEGATIVE) 12/24/19 12:00 Urine Nitrite NEGATIVE (NEGATIVE) 12/24/19 12:00 Urine Bilirubin NEGATIVE (NEGATIVE) 12/24/19 12:00 Urine Urobilinogen NEGATIVE mg/dL (<2.0) 12/24/19 12:00 Ur Leukocyte Esterase TRACE (NEGATIVE) H 12/24/19 12:00 Urine Ascorbic Acid NEGATIVE (NEGATIVE) 12/24/19 12:00 Membranes Rupture POSITIVE (NEGATIVE) H 12/24/19 12:20 Urine Opiates Screen NEGATIVE 12/24/19 12:00 Urine Methadone Screen NEGATIVE 12/24/19 12:00 Ur Barbiturates Screen NEGATIVE 12/24/19 12:00 Ur Phencyclidine Scrn NEGATIVE 12/24/19 12:00 Ur Amphetamines Screen NEGATIVE 12/24/19 12:00 U Benzodiazepines Scrn NEGATIVE 12/24/19 12:00 Urine Cocaine Screen NEGATIVE 12/24/19 12:00 U Marijuana (THC) Screen NEGATIVE 12/24/19 12:00 RPR NONREACTIVE (NONREACTIVE) 12/24/19 14:03 Blood Type AB POSITIVE 12/24/19 14:03 Antibody Screen NEGATIVE 12/24/19 14:03 Plan Plan of Treatment: D/c home, f/up with [facility] in one week for incision check Time Spent: Less than 30 Minutes
[2019-12-27 13:05] VITALS: BP 110/82
== END 2019-12-27 13:35 | disposition home or self-care (01) | DRG 788 ==
LOC: LC 11:52 → LR 12:42 → 2N 12-25 09:04
PROVIDERS: ADMIT Obstetrics & Gynecology; ATTEND Obstetrics & Gynecology
PROC: 10D00Z1 Extraction of Products of Conception, Low, Open Approach (ICD-10-PCS; principal; 2019-12-25)
DX: O99.824 Streptococcus B carrier state complicating childbirth (principal); O77.0 Labor and delivery complicated by meconium in amniotic fluid; O76 Abnormality in fetal heart rate and rhythm complicating labor and delivery; O99.344 Other mental disorders complicating childbirth; F32.9 Major depressive disorder, single episode, unspecified; F41.9 Anxiety disorder, unspecified; Z91.013 Allergy to seafood; Z11.59 Encounter for screening for other viral diseases; Z87.891 Personal history of nicotine dependence; Z37.0 Single live birth; Z3A.39 39 weeks gestation of pregnancy
CPT/HCPCS: 1967; 1968; 36415; 80307; 81005; 82962; 84112; 85025; 85027; 86592; 86850; 86900; 86901; 88307; 94760; 94799; 99140; J0690; J1885; J2250; J2270; J2405; J2540; J2590; J2795; J3010; J3490; J7060